=== PATIENT | female | born 2000 | race African-American/Black ===

== ENCOUNTER 2024-02-05 22:01 | Emergency (ER) | payer OTHER ==
[~2024-02-05] VITALS: Ht 170.2 cm; Wt 64.0 kg
[2024-02-05 22:06] VITALS: BP 121/63; PULSE 83; RESP 16; TEMP 98.6; O2SAT 100
== END 2024-02-05 22:18 | disposition home or self-care (01) ==
LOC: ER 22:01
DX: Z34.92 Encounter for supervision of normal pregnancy, unspecified, second trimester (principal)
CPT/HCPCS: 99283